=== PATIENT | female | born 1970 | race Caucasian/White ===

== ENCOUNTER 2019-08-20 14:13 | Emergency (ER) | payer OTHER ==
--- NOTE | 2019-08-20 14:28 | TELE ---
HPI - General Reason For Visit: RASH - History of Present Illness 08/20/19 14:28 49-year-old female with a past medical history of adrenal insufficiency on hydrocortisone 50 mg daily presents for evaluation of 3 days of rash after working in the sun without any precipitating traumatic event. She did use a sunscreen. She complains of itching and raised hives to the area.No systemic symptoms. Past History - Medical History Allergies/Adverse Reactions: Allergies Allergy/AdvReac Type Severity Reaction Status Date / Time No Known Allergies Allergy Verified 07/13/13 10:55 Home Medications: Ambulatory Orders Clobetasol Propionate [Temovate] 30 gm TP BID #1 oint...g. 08/20/19 - Immunization History Immunization Up to Date: Yes - Psycho-Social/Smoking History Smoking History: Never smoked Have you smoked in the past 12 months: No Review of Systems - Review of Systems Constitutional: No: Chills, Fever Integumentary: Yes: Pruritus, Rash *Physical Exam - Physical Exam General Appearance: Yes: Appropriately Dressed. No: Apparent Distress HEENT: positive: Symmetrical Respiratory/Chest: negative: Respiratory Distress Musculoskeletal: positive: Normal Inspection Extremity: positive: Normal Inspection Integumentary: positive: Other (There appears to be a raised wheal rash about the forehead and anterior aspect of the right side of the neck. Patient denies any warmth sensitivity or thickening of the skin in those areas. 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 She denies this being an infection. She describes this clearly as hives. Topical cortisone given light potency patient told to use sparingly. This will by her symptomatic relief until she follows up with her outreach liaison in [facility] in 1 to 2 days patient is in agreement with the plan and understands she cannot use cortisone on the face for an extended period of time. I have reviewed the pathophysiology with the patient. They are in agreement with the treatment plan all questions were answered to their satisfaction. Understanding for follow-up without fail was also conveyed to the patient. Again they are in agreement. Discharge Diagnosis at time of Disposition: Allergic dermatitis - Referrals - Patient Instructions - Discharge Disposition: HOME Condition at time of Disposition: Stable
== END 2019-08-20 14:45 | disposition home or self-care (01) ==
LOC: JVIRT 14:13
DX: L23.9 Allergic contact dermatitis, unspecified cause (principal)
CPT/HCPCS: Q3014-GT

== ENCOUNTER 2022-10-11 12:06 | Emergency (ER) | payer BC ==
[2022-10-11] MEDS ORDERED: MAG HYDROX/AL HYDROX/SIMETH -MYLANTA- ORAL SUSPENSION PO ONE (12:23)
[2022-10-11] MEDS ORDERED: SUCRALFATE 1 GM TABLET (FP) PO ONE (12:23)
[2022-10-11] MEDS ORDERED: LACTATED RINGERS SOLUTION 1000 ML INFUS.BAG IV ONE ×2 (12:23→14:12)
[2022-10-11] MEDS ORDERED: FAMOTIDINE 20 MG/50 ML IVPB 20 MG/50 ML MG IVPB ONE ×2 (12:23→12:34)
[2022-10-11] MEDS ORDERED: ONDANSETRON 4 MG/2 ML VIAL IVPUSH ONE (12:23)
[2022-10-11] MEDS ORDERED: MAG HYDROX/AL HYDROX/SIMETH 30 ML UNIT-DOSE CUP ONE (12:33)
[2022-10-11] MEDS ORDERED: ONDANSETRON 4 MG/2 ML VIAL ONE (12:33)
[2022-10-11] MEDS ORDERED: SUCRALFATE 1 GM TABLET (FP) ONE (12:33)
[2022-10-11] MEDS ORDERED: ACETAMINOPHEN 1000 MG/100 ML BAG IVPB ONE (12:38)
[2022-10-11] MEDS ORDERED: ACETAMINOPHEN INJECTION 100 ML IVPB ONE (12:39)
[2022-10-11 12:51] VITALS: BMI 23.9
[2022-10-11 12:58] LABS: BASO % 0.6 % (0-2.0); EOS % 1.1 % (0-4.5); HEMOGLOBIN 13.1 GM/dL (10.7-15.3); MCH 30.8 pg (25.7-33.7); MCHC 35.2 g/dl (32.0-36.0); MEAN CELL VOLUME 87.3 fl (80-96); MEAN PLT VOLUME 7.4 fl (7.5-11.1); MONO % 12.8 % (3.8-10.2); NEUT % 72.5 % (42.8-82.8); PLATELET COUNT 170 10^3/uL (134-434); RBC 4.24 M/mm3 (3.60-5.2); RDW 12.3 % (11.6-15.6); WHITE BLOOD COUNT 4.9 K/mm3 (4.0-10.0)
[2022-10-11 13:25] LABS: POTASSIUM 4.4 mmol/L (3.5-5.1)
[2022-10-11 13:27] LABS: CALCIUM 8.6 mg/dL (8.5-10.1)
[2022-10-11 13:28] LABS: ALBUMIN 3.4 g/dl (3.4-5.0); BLOOD UREA NITROGEN 8.6 mg/dL (7-18); MAGNESIUM 1.9 mg/dL (1.8-2.4)
[2022-10-11 13:31] LABS: CREATININE 0.7 mg/dL (0.55-1.3)
[2022-10-11 13:32] LABS: BILIRUBIN,TOTAL 0.6 mg/dL (0.2-1)
[2022-10-11 13:33] LABS: TOT PROT 6.2 g/dl (6.4-8.2)
[2022-10-11 13:55] VITALS: RESP 18
[2022-10-11 14:33] LABS: MAGNESIUM 1.8 mg/dL (1.8-2.4)
[2022-10-11] MEDS ORDERED: HYDROCORTISONE 10 MG TABLET PO ONE (14:43)
[2022-10-11 16:08] VITALS: BP 107/55; PULSE 82; TEMP 97.8
== END 2022-10-11 16:09 | disposition home or self-care (01) ==
LOC: JER 12:06
PROC: 3E033GC Introduction of Other Therapeutic Substance into Peripheral Vein, Percutaneous Approach (ICD-10-PCS; principal; 2022-10-11)
PROC: 3E033NZ Introduction of Analgesics, Hypnotics, Sedatives into Peripheral Vein, Percutaneous Approach (ICD-10-PCS; 2022-10-11)
PROC: 3E033GC Introduction of Other Therapeutic Substance into Peripheral Vein, Percutaneous Approach (ICD-10-PCS; 2022-10-11)
DX: R09.81 Nasal congestion (principal); R11.2 Nausea with vomiting, unspecified; R53.83 Other fatigue; R19.7 Diarrhea, unspecified; M79.10 Myalgia, unspecified site; R10.13 Epigastric pain; U07.1 COVID-19; R68.83 Chills (without fever)
CPT/HCPCS: 0241U-QW; 36415; 71045-TC-FY; 80053; 82962; 83690; 83735; 84132; 84439; 84443; 84484; 85025; 93005; 93010; 99285-25

== ENCOUNTER 2024-07-02 15:17 | Observation (INO) | payer BC ==
[~2024-07-02 15:17] MED LIST: BUPRENORPHINE TP SCH; [UNRECOGNIZED DRUG - OTHER] TP SCH
[2024-07-02] MEDS: SODIUM CHLORIDE 0.9% 500 ML INFUS.BAG IV ONE (16:12)
[2024-07-02] MEDS ORDERED: ONDANSETRON 4 MG/2 ML VIAL ONE (16:13)
[2024-07-02] MEDS ORDERED: FAMOTIDINE 20 MG/50 ML IVPB 20 MG/50 ML MG IVPB ONE (16:13)
[2024-07-02] MEDS: FAMOTIDINE 20 MG/50 ML IVPB 20 MG/50 ML MG IVPB ONE (16:19)
[2024-07-02] MEDS: ONDANSETRON 4 MG/2 ML VIAL IVPUSH ONE (16:19)
[2024-07-02 16:58] LABS: ABSOLUTE IMMATURE GRANULOCYTES 0.03 x10^3/uL (0.0-0.031); BASOPHILS # 0.03 x10^3/uL (0.01-0.08); EOSINOPHIL % 0.6 % (0.7-5.8); EOSINOPHILS # 0.05 x10^3/uL (0.04-0.36); HEMATOCRIT 42.5 % (34.1-44.9); HEMOGLOBIN 14.2 g/dL (11.2-15.7); MCHC 33.4 g/dl (32.2-35.5); MEAN CELL VOLUME 85.5 fl (79.4-94.8); MEAN PLT VOLUME 8.4 fl (9.4-12.3); MONOCYTE % 4.5 % (4.7-12.5); PLATELET COUNT 258 x10^3/uL (182-369); RDW 13.2 % (12.3-16.6)
[2024-07-02 17:29] LABS: POTASSIUM 4.4 mmol/L (3.5-5.1)
[2024-07-02 17:29] LABS: LACTIC ACID 2.8 mmol/L (0.4-2.0)
[2024-07-02 17:33] LABS: BLOOD UREA NITROGEN 24.1 mg/dL (7-18); CALCIUM 9.6 mg/dL (8.5-10.1); MAGNESIUM 2.4 mg/dL (1.8-2.4)
[2024-07-02 17:35] LABS: PHOSPHOROUS 6.4 mg/dL (2.5-4.9)
[2024-07-02 17:37] LABS: TOT PROT 6.4 g/dl (6.4-8.2)
[2024-07-02] MEDS ORDERED: HYDROCORTISONE SOD SUCCINATE 100 MG/2 ML VIAL ONE (17:41)
[2024-07-02] MEDS: HYDROCORTISONE SOD SUCCINATE 100 MG/2 ML VIAL IVPB ONE (17:49)
[2024-07-02 18:04] LABS: BILIRUBIN,TOTAL 0.4 mg/dL (0.2-1)
[2024-07-02] MEDS ORDERED: DEXTROSE 50%-WATER 25 GM/50 ML DISP.SYRIN ONE (18:20)
[2024-07-02] MEDS: DEXTROSE 50%-WATER - 25 GM/50 ML VIAL IVPUSH ONE (18:20)
[2024-07-02] MEDS ORDERED: TRIMETHOBENZAMIDE HCL 200MG/2ML INJ IM PRN (21:23)
[2024-07-02] MEDS ORDERED: DEXTROSE 50%-WATER - 25 GM/50 ML VIAL IVPUSH PRN (21:28)
[2024-07-02 23:03] VITALS: BMI 20.9
[2024-07-02] MEDS ORDERED: DEXTROSE 50%-WATER 25 GM/50 ML DISP.SYRIN IVPUSH PRN (23:48)
[2024-07-03] MEDS: HYDROCORTISONE SOD SUCCINATE 100 MG/2 ML VIAL IVPUSH SCH (01:33)
[2024-07-03] MEDS: SODIUM CHLORIDE 1,000 ML IV SCH (01:34)
[2024-07-03] MEDS: LEVOTHYROXINE NA 75 MCG TABLET (FP) PO SCH (06:56)
[2024-07-03] MEDS ORDERED: LEVOTHYROXINE NA 75 MCG TABLET (FP) PO SCH (07:00)
[2024-07-03] MEDS ORDERED: HYDROCORTISONE 10 MG TABLET PO SCH ×2 (07:00→10:00)
[2024-07-03] MEDS ORDERED: LEVOTHYROXINE SODIUM 100 MCG 5 ML VIAL IVPUSH SCH (07:00)
[2024-07-03 08:37] LABS: HEMATOCRIT 33.8 % (34.1-44.9); HEMOGLOBIN 11.5 g/dL (11.2-15.7); MEAN CELL VOLUME 85.4 fl (79.4-94.8); PLATELET COUNT 283 x10^3/uL (182-369); RDW 13.3 % (12.3-16.6)
[2024-07-03 09:05] LABS: POTASSIUM 4.3 mmol/L (3.5-5.1)
[2024-07-03 09:19] LABS: ALBUMIN 3.2 g/dl (3.4-5.0); BLOOD UREA NITROGEN 20.5 mg/dL (7-18); CALCIUM 9.3 mg/dL (8.5-10.1); MAGNESIUM 2.2 mg/dL (1.8-2.4)
[2024-07-03 09:21] LABS: CREATININE 0.7 mg/dL (0.55-1.3)
[2024-07-03 09:22] LABS: BILIRUBIN,TOTAL 0.6 mg/dL (0.2-1); TOT PROT 5.3 g/dl (6.4-8.2)
[2024-07-03] MEDS: LETROZOLE 2.5 MG TABLET (FP) PO SCH (10:08)
[2024-07-03] MEDS: ENOXAPARIN NA (PORCINE) 40 MG/0.4 ML DISP.SYRIN SQ SCH (10:09)
[2024-07-03] MEDS: LIPASE/PROTEASE/AMYLASE 24,000 UNIT CAPSULE PO SCH (12:06)
[2024-07-03] MEDS ORDERED: ONDANSETRON 4 MG/2 ML VIAL IVPUSH PRN (17:49)
[2024-07-03] MEDS: PROCHLORPERAZINE MALEATE 5 MG TABLET PO PRN (21:00)
[2024-07-03] MEDS: BINIMETINIB 15 MG PO SCH (21:49)
[2024-07-03] MEDS: HYDROCORTISONE 5 MG TABLET PO SCH (21:51)
[2024-07-03] MEDS ORDERED: HYDROCORTISONE 5 MG TABLET PO SCH ×2 (22:00)
[2024-07-04] MEDS: HYDROCORTISONE 10 MG TABLET PO SCH (06:11)
[2024-07-04 08:14] LABS: HEMATOCRIT 31.5 % (34.1-44.9); HEMOGLOBIN 10.5 g/dL (11.2-15.7); MCHC 33.3 g/dl (32.2-35.5); MEAN CELL VOLUME 85.8 fl (79.4-94.8); PLATELET COUNT 228 x10^3/uL (182-369); RDW 13.1 % (12.3-16.6)
[2024-07-04 08:31] LABS: POTASSIUM 4.2 mmol/L (3.5-5.1)
[2024-07-04 08:40] LABS: ALBUMIN 3.1 g/dl (3.4-5.0); BLOOD UREA NITROGEN 12.9 mg/dL (7-18); CALCIUM 9.2 mg/dL (8.5-10.1); MAGNESIUM 2.2 mg/dL (1.8-2.4)
[2024-07-04 08:43] LABS: CREATININE 0.6 mg/dL (0.55-1.3); PHOSPHOROUS 3.6 mg/dL (2.5-4.9)
[2024-07-04 08:44] LABS: BILIRUBIN,TOTAL 0.2 mg/dL (0.2-1); TOT PROT 5.2 g/dl (6.4-8.2)
[2024-07-04] MEDS: ENCORAFENIB 75 MG PO SCH (10:19)
[2024-07-04 11:26] VITALS: BP 122/64; PULSE 72; RESP 16; TEMP 97.9
[2024-07-04] MEDS ORDERED: HYDROCORTISONE 5 MG TABLET PO SCH (22:00)
== END 2024-07-04 11:49 | disposition home or self-care (01) ==
LOC: JER 15:17 → JERBED 18:26 → J6S 20:22
PROVIDERS: ADMIT Internal Medicine; ATTEND Internal Medicine
PROC: 3E0337Z Introduction of Electrolytic and Water Balance Substance into Peripheral Vein, Percutaneous Approach (ICD-10-PCS; principal; 2024-07-02)
PROC: 3E033GC Introduction of Other Therapeutic Substance into Peripheral Vein, Percutaneous Approach (ICD-10-PCS; 2024-07-02)
DX: E87.20 Acidosis, unspecified (principal); R11.2 Nausea with vomiting, unspecified; C50.912 Malignant neoplasm of unspecified site of left female breast; C43.9 Malignant melanoma of skin, unspecified; C78.00 Secondary malignant neoplasm of unspecified lung; Z90.10 Acquired absence of unspecified breast and nipple; E03.9 Hypothyroidism, unspecified
CPT/HCPCS: 36415; 80053; 82962; 83605; 83690; 83735; 84100; 84439; 84443; 84484; 85025; 85027; 93005; 93010; 99285-25; G0378